=== PATIENT | male | born 2000 | race Caucasian/White ===

== ENCOUNTER 2021-03-27 16:00 | Outpatient (RCR) | payer OTHER, SELFPAY ==
--- NOTE | 2021-02-22 17:01 | PTOPEVAL ---
PHYSICAL THERAPY EVALUATION Thank you for referring Ranjit Vazquez to [facility].? Ranjit was evaluated for the dx of dorsalgia. The patient is scheduled to be seen for therapy?2 x/week for 4 weeks. Please review, sign, date and return this plan of care IVON. I agree with and certify that the following plan of care is medically necessary. 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 The patient started with pain in the am and pain got worse through day where he had to lay because he couldn' t stand or walk anymore. The patient saw the MD the next day, was given muscle relaxers that he hasn't needed in the last week. 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 The plays golf on the weekends and plays video games (sitting on a couch ). The pt has a hx of back pain off and on since 2017 from a deadlift injury. Xrays were done in past with no noted bony problems. Subjective Information The pt denies family hx of Query Text:As Reported By Patient/ back issues. Family Pain Assessment Timing of Pain Assessment Timing of Pain Assessment Assessment Pain Scale Pain Scale Used Numeric (1 - 10) Self Report Pain Assessment Lower Back Reported Pain Level 0 Pain Description Sharp Pain Frequency Acute,Chronic Other Pain Description stairs create pain at LB rated a 10; occurs 25% of time Pain Aggravating Factors Bending,Lifting,Stair Climbing Pain Behaviors None Pain Score Pain Score 0: Self Report Interventions Used Interventions Used By Clinicians Education,Exercise,Heat Pain Re
--- NOTE | 2021-03-08 16:41 | PCPTNOTE ---
Patient called & cancelled scheduled appointment this date stated unable to make it.
--- NOTE | 2021-03-27 16:44 | PTOPEVAL ---
PHYSICAL THERAPY DISCHARGE Thank you for referring Ranjit Vazquez to [facility].? The patient has completed 8 visits for the dx of low back pain with goals met. Please review, sign, date and return this plan of care. I agree with and certify the following plan of care. Referring Physician Date Attending Provider: Dorie Salcedo, YSABEL *PT Outpatient Discharge Start: 02/22/21 15:41 Freq: Status: Active Protocol: Document 03/27/21 16:00 MLV (Rec: 03/27/21 16:38 MLV [id number]) Therapy Assessment Status Assessment Status Assessment Status Discharge Evaluation Information Problem Diagnosis dorsalgia/low back pain Onset about 3 weeks ago Cause no injury Additional Evaluation Detail The patient reports feeling better and not needing the muscle relaxers anymore. The patient works 2 jobs and can do all tasks without restrictions. The patient reports being pain free at rest and with activities. The patient reports no trouble with the exercises and a few are too easy now. The has no follow up with the MD and doesn't feel he needs one. The patient plans to continue exercises on his own. Pain Assessment Timing of Pain Assessment Timing of Pain Assessment Assessment Self Report Self Report Pain Level 0 Pain Score Pain Score 0: Self Report Cervical and Lumbar ROM Lumbar ROM Reason Not Measured WNL/Left,WNL/Right Cervical and Lumbar Muscle Testing Lumbar Strength Upper Abdominal Strength 3+Fair+ Lower Abdominal Strength 3+Fair+ Abdominal Obliques 3+Fair+ Upper Back Extension 5 Normal Lower Back Extension 4+ Good+ Trunk Rotation 4+ Good+ Muscle Length Testing Muscle Length Testing Muscle Length Testing Comments improved hip rotation flexibility, unchanged for ITB tightness Palpation Assessment Palpation Palpation chronic lumbar erector tightness/glut tightness PT Clinical Summary Ranjit is a 21 y/o male seen 8 visits for the dx of low back pain. The patient has improved with a decrease in pain, increase in some aspects
== END 2021-03-28 08:31 | disposition home or self-care (01) ==
LOC: ANHPT 16:00
PROVIDERS: PCP Internal Medicine; Visit Provider Nurse Practitioner
DX: M54.9 Dorsalgia, unspecified (principal)
CPT/HCPCS: 97110; 97161

== ENCOUNTER → 2021-09-13 02:10 | Outpatient (CLI) | payer OTHER, SELFPAY ==
[2021-09-13 12:44] LABS: Influenza Control Positive
[2021-09-13 18:14] LABS: SARS-CoV-2 RNA PCR Negative
== END ==
PROVIDERS: PCP Internal Medicine; Visit Provider Internal Medicine
DX: R68.89 Other general symptoms and signs (principal); Z20.822 Contact with and (suspected) exposure to COVID-19
CPT/HCPCS: 87804; C9803; U0003; U0005